=== PATIENT | male | born 1980 | race Hispanic/Latino ===

== ENCOUNTER 2023-01-03 17:21 | Inpatient (IN) | payer BC, OTHER ==
[~2023-01-03] VITALS: Ht 188 cm; Wt 137.0 kg
[~2023-01-03 17:21] MED LIST: CEPH500B PO; IBUP-1493 PO
[2023-01-03 18:05] LABS: BASOPHILS % (AUTO) 0.3 % (0.0-5.0); HEMATOCRIT 43.5 % (42-54); LYMPHOCYTES % (AUTO) 7.2 % (21.0-51.0); MEAN CORPUSCULAR HEMOGLOBIN 27.5 pg (27.0-33.0); MEAN CORPUSCULAR HGB CONC 33.3 g/dL (32.0-36.0); MEAN CORPUSCULAR VOLUME 82.5 fL (79-99); MONOCYTES % (AUTO) 7.5 % (3.0-13.0); NEUTROPHILS % (AUTO) 83.4 % (40.0-77.0); PLATELET COUNT (AUTO) 238 K/uL (130-400); RED BLOOD CELL COUNT(AUTO) 5.27 MIL/uL (4.50-6.20); RED CELL DISTRIBUTION WIDTH 12.1 % (11.0-15.5); WHITE BLOOD COUNT (AUTO) 19.3 K/uL (4.8-10.8)
[2023-01-03 18:12] LABS: CREATININE 1.1 mg/dL (0.5-1.5); POTASSIUM 3.9 mmol/L (3.5-5.1)
[2023-01-03 18:16] LABS: ALBUMIN 2.4 g/dL (3.5-5.0); TOTAL PROTEIN, SERUM 7.9 g/dL (6.0-8.3)
[2023-01-03 18:29] LABS: APPEARANCE,URINE CLOUDY (CLEAR); BILIRUBIN,URINE NEGATIVE (NEGATIVE); COLOR,URINE YELLOW (YELLOW); GLUCOSE, URINE (UA) >=1000 mg/dL (NEGATIVE); KETONES,URINE 150 mg/dL (NEGATIVE); LEUKOCYTE ESTERASE ,URINE 500 Leu/uL (NEGATIVE); NITRATE,URINE NEGATIVE (NEGATIVE); OCCULT BLOOD,URINE MODERATE (NEGATIVE); PROTEIN,URINE 100 mg/dL (NEGATIVE); UROBILINOGEN,URINE 0.2 mg/dL (0.2-1.0)
[2023-01-03 18:32] LABS: BACTERIA,URINE RARE /HPF (None Seen); MUCUS,URINE RARE LPF (None Seen); OTHER CASTS, URINE 1 /LPF (None Seen); RBC,URINE 26-50 /HPF (0-1); SQUAMOUS EPITHELIAL CELL,UR FEW /HPF (0-2); WBC,URINE 26-50 /HPF (0-1)
[2023-01-03] MEDS ORDERED: CEFTRIAXONE 1G VIAL IVPB ONE (19:00)
[2023-01-03] MEDS ORDERED: 0.9%NACL 1000ML 2,000 ML IV ONE (19:00)
[2023-01-03] MEDS ORDERED: ACETAMINOPHEN 500 MG TABLET PO ONE (19:00)
[2023-01-03] MEDS ORDERED: INSULIN HUMULIN R 100 UNIT/ML 3ML IV ONE (19:00)
[2023-01-03 19:38] LABS: ABG OXYGEN SATURATION 41.4 % (95.0-99.0); BASE EXCESS,VENOUS BLOOD GAS -3.4 (-2.0-3.0); HCO3,VENOUS BLOOD GAS 21.2 (21.0-28.0); PCO2,VENOUS BLOOD GAS 38 (35-48); PH,VENOUS BLOOD GAS 7.371 (7.350-7.450)
[2023-01-03] MEDS ORDERED: ONDANSETRON 4MG TABLET PO PRN (21:00)
[2023-01-03] MEDS ORDERED: VANCOMYCIN PROTOCOL PER PHARMACY IV SCH (21:00)
[2023-01-03] MEDS: CEFEPIME HCL 2 GM VIAL IVPB SCH (21:08)
[2023-01-03] MEDS: INSULIN HUMULIN R 100 UNIT/ML 3ML SQ SCH (21:16)
[2023-01-03 23:00] VITALS: BP 139/74
[2023-01-04] VITALS (23 sets, daily range): BP systolic 111–146; BP diastolic 68–92
[2023-01-04 04:32] LABS: BASOPHILS % (AUTO) 0.3 % (0.0-5.0); EOSINOPHILS % (AUTO) 0.1 % (0.0-8.0); HEMATOCRIT 37.6 % (42-54); LYMPHOCYTES % (AUTO) 11.2 % (21.0-51.0); MEAN CORPUSCULAR HGB CONC 33.2 g/dL (32.0-36.0); MEAN CORPUSCULAR VOLUME 84.3 fL (79-99); MONOCYTES % (AUTO) 9.6 % (3.0-13.0); NEUTROPHILS % (AUTO) 75.8 % (40.0-77.0); PLATELET COUNT (AUTO) 207 K/uL (130-400); RED BLOOD CELL COUNT(AUTO) 4.46 MIL/uL (4.50-6.20); WHITE BLOOD COUNT (AUTO) 17.9 K/uL (4.8-10.8)
[2023-01-04 04:39] LABS: CREATININE 1.1 mg/dL (0.5-1.5); MAGNESIUM 1.7 mg/dL (1.80-2.40); POTASSIUM 3.6 mmol/L (3.5-5.1)
[2023-01-04] MEDS: CEFEPIME HCL 2 GM VIAL IVPB SCH ×3 (05:10→20:20)
[2023-01-04] MEDS: INSULIN HUMULIN R 100 UNIT/ML 3ML SQ SCH ×4 (06:39→20:30)
[2023-01-04] MEDS: ACETAMINOPHEN 325 MG TAB PO PRN ×2 (08:30→23:05)
[2023-01-04] MEDS: ENOXAPARIN SODIUM 40 MG/0.4 ML SYRINGE SQ SCH (08:31)
[2023-01-04] MEDS ORDERED: COMPOUND IV REFRIGERATED 1 EACH IVSOLN MISC PRN (10:00)
[2023-01-04] MEDS: VANCOMYCIN 1.5 GM/250 ML BAG 250 ML IV SCH ×3 (10:07→21:50)
[2023-01-04] MEDS ORDERED: DIPH,PERTUSS(ACELL),TET VAC/PF 0.5 ML VIAL IM ONE (11:00)
[2023-01-04] MEDS ORDERED: POTASSIUM CHLORIDE 20MEQ/100ML 100 ML IV PRN ×2 (16:00)
[2023-01-04] MEDS ORDERED: POTASSIUM CHLORIDE 10% ELIXIR 20 MEQ/15 ML UDCUP PO PRN (16:00)
[2023-01-04] MEDS ORDERED: LACTATED RINGERS 1000ML IV SCH (17:00)
[2023-01-04] MEDS ORDERED: BUPIVACAINE/PF 0.5% 30ML VIAL ONE (17:35)
[2023-01-04] MEDS ORDERED: LIDOCAINE HCL 1% 10 ML VIAL ONE (17:35)
[2023-01-04] MEDS ORDERED: PROPOFOL 10 MG/ML 20ML VIAL IV ONE (17:44)
[2023-01-04] MEDS ORDERED: MIDAZOLAM HCL 1 MG/ML 2ML VIAL ONE (17:44)
[2023-01-04] MEDS ORDERED: LIDOCAINE PF 100MG/5ML (2%) SYRINGE 5ML ONE (17:44)
[2023-01-04] MEDS ORDERED: FENTANYL CITRATE PF 50 MCG/1 ML 2ML VIAL ONE (17:44)
[2023-01-04] MEDS ORDERED: BUPIVACAINE/PF 0.5% 30ML VIAL INJ ONE (17:55)
[2023-01-04] MEDS ORDERED: LIDOCAINE HCL 1% 10 ML VIAL INJ ONE (17:55)
[2023-01-04] MEDS ORDERED: ONDANSETRON 4MG INJ ONE (18:10)
[2023-01-04] MEDS ORDERED: ACETAMINOPHEN WITH CODEINE 1 TAB TAB PO PRN (21:00)
[2023-01-04] MEDS: KCL 20 MEQ ERTAB PO PRN (21:49)
[2023-01-05] VITALS (7 sets, daily range): BP systolic 106–138; BP diastolic 58–85
[2023-01-05] MEDS: MAGNESIUM 2GM PREMIX 50ML 50 ML IV PRN (00:40)
[2023-01-05] MEDS: CEFEPIME HCL 2 GM VIAL IVPB SCH ×3 (06:03→20:59)
[2023-01-05] MEDS: INSULIN HUMULIN R 100 UNIT/ML 3ML SQ SCH ×4 (06:06→21:14)
[2023-01-05] MEDS: VANCOMYCIN 1.5 GM/250 ML BAG 250 ML IV SCH ×3 (06:33→21:00)
[2023-01-05] MEDS: ENOXAPARIN SODIUM 40 MG/0.4 ML SYRINGE SQ SCH (09:25)
[2023-01-05 13:43] LABS: HEMATOCRIT 38.2 % (42-54); MEAN CORPUSCULAR HEMOGLOBIN 27.9 pg (27.0-33.0); MEAN CORPUSCULAR HGB CONC 33.2 g/dL (32.0-36.0); MEAN CORPUSCULAR VOLUME 83.8 fL (79-99); RED BLOOD CELL COUNT(AUTO) 4.56 MIL/uL (4.50-6.20); RED CELL DISTRIBUTION WIDTH 12.1 % (11.0-15.5); WHITE BLOOD COUNT (AUTO) 11.9 K/uL (4.8-10.8)
[2023-01-05 13:50] LABS: POTASSIUM 3.6 mmol/L (3.5-5.1)
[2023-01-05] MEDS: KCL 20 MEQ ERTAB PO PRN ×2 (16:12→18:29)
[2023-01-05] MEDS: ACETAMINOPHEN 325 MG TAB PO PRN (23:28)
[2023-01-06 03:33] VITALS: BP 124/68
[2023-01-06] MEDS: CEFEPIME HCL 2 GM VIAL IVPB SCH ×3 (04:47→21:09)
[2023-01-06] MEDS: VANCOMYCIN 1.5 GM/250 ML BAG 250 ML IV SCH ×3 (05:00→22:51)
[2023-01-06 05:06] LABS: HEMATOCRIT 34.5 % (42-54); MEAN CORPUSCULAR HEMOGLOBIN 27.9 pg (27.0-33.0); MEAN CORPUSCULAR HGB CONC 33.9 g/dL (32.0-36.0); MEAN CORPUSCULAR VOLUME 82.1 fL (79-99); RED BLOOD CELL COUNT(AUTO) 4.2 MIL/uL (4.50-6.20); RED CELL DISTRIBUTION WIDTH 12.1 % (11.0-15.5); WHITE BLOOD COUNT (AUTO) 10.9 K/uL (4.8-10.8)
[2023-01-06 05:16] LABS: CREATININE 0.9 mg/dL (0.5-1.5); MAGNESIUM 1.8 mg/dL (1.80-2.40)
[2023-01-06] MEDS: KCL 20 MEQ ERTAB PO PRN ×4 (05:25→16:19)
[2023-01-06] MEDS: INSULIN HUMULIN R 100 UNIT/ML 3ML SQ SCH ×4 (06:23→21:12)
[2023-01-06 08:00] VITALS: BP 120/72
[2023-01-06] MEDS: MAGNESIUM 2GM PREMIX 50ML 50 ML IV PRN (09:47)
[2023-01-06] MEDS: ENOXAPARIN SODIUM 40 MG/0.4 ML SYRINGE SQ SCH (09:47)
[2023-01-06 11:56] VITALS: BP 124/75
[2023-01-06 16:00] VITALS: BP 132/78
[2023-01-06 20:00] VITALS: BP 137/82
[2023-01-06 23:30] VITALS: BP 117/67
[2023-01-07 03:54] VITALS: BP 135/74
[2023-01-07] MEDS: CEFEPIME HCL 2 GM VIAL IVPB SCH (04:15)
[2023-01-07] MEDS: VANCOMYCIN 1.5 GM/250 ML BAG 250 ML IV SCH ×3 (06:19→22:15)
[2023-01-07] MEDS: INSULIN HUMULIN R 100 UNIT/ML 3ML SQ SCH ×4 (06:23→21:56)
[2023-01-07 07:44] VITALS: BP 136/77
[2023-01-07] MEDS: CEFEPIME HCL 1 GM VIAL IVPB SCH ×2 (10:10→17:47)
[2023-01-07] MEDS: ENOXAPARIN SODIUM 40 MG/0.4 ML SYRINGE SQ SCH (10:13)
[2023-01-07 11:26] VITALS: BP 140/66
[2023-01-07 15:57] VITALS: BP 152/79
[2023-01-07 20:07] VITALS: BP 135/79
[2023-01-07 23:13] VITALS: BP 135/65
[2023-01-08] MEDS: CEFEPIME HCL 1 GM VIAL IVPB SCH ×2 (02:30→09:19)
[2023-01-08 04:00] VITALS: BP 137/84
[2023-01-08] MEDS: VANCOMYCIN 1.5 GM/250 ML BAG 250 ML IV SCH ×2 (06:16→14:02)
[2023-01-08] MEDS: INSULIN HUMULIN R 100 UNIT/ML 3ML SQ SCH ×3 (06:16→16:22)
[2023-01-08 08:00] VITALS: BP 138/79
[2023-01-08] MEDS: ENOXAPARIN SODIUM 40 MG/0.4 ML SYRINGE SQ SCH (09:19)
[2023-01-08 12:00] VITALS: BP 138/82
[2023-01-08 16:00] VITALS: BP 140/79
== END 2023-01-08 17:25 | DRG 872 ==
LOC: EDH 17:21 → EDHIP 17:22 → 4CH 23:00
PROVIDERS: ADMIT Internal Medicine Infectious Disease; ATTEND Internal Medicine Infectious Disease
PROC: 0J9R0ZZ Drainage of Left Foot Subcutaneous Tissue and Fascia, Open Approach (ICD-10-PCS; principal; 2023-01-04 17:49)
DX: A41.02 Sepsis due to Methicillin resistant Staphylococcus aureus (principal); L03.116 Cellulitis of left lower limb; E87.1 Hypo-osmolality and hyponatremia; L02.612 Cutaneous abscess of left foot; N39.0 Urinary tract infection, site not specified; L03.115 Cellulitis of right lower limb; Z20.822 Contact with and (suspected) exposure to COVID-19; R65.20 Severe sepsis without septic shock; E11.621 Type 2 diabetes mellitus with foot ulcer; E11.628 Type 2 diabetes mellitus with other skin complications; L97.529 Non-pressure chronic ulcer of other part of left foot with unspecified severity; L97.519 Non-pressure chronic ulcer of other part of right foot with unspecified severity; E66.01 Morbid (severe) obesity due to excess calories; I10 Essential (primary) hypertension; W45.0XXA Nail entering through skin, initial encounter; Y93.89 Activity, other specified; Y92.89 Other specified places as the place of occurrence of the external cause; Y99.8 Other external cause status; Z83.3 Family history of diabetes mellitus; Z91.199 Patient's noncompliance with other medical treatment and regimen due to unspecified reason; Z68.38 Body mass index [BMI] 38.0-38.9, adult
CPT/HCPCS: 36415; 36600; 71045; 73630; 80048; 80053; 80202; 81001; 82010; 82435; 82803; 82947; 82948; 83036; 83605; 83735; 84132; 84295; 85025; 85027; 87040; 87070; 87076; 87077; 87088; 87186; 87205; 87635; 90715; 93005; 97039; G0378; J0692; J0696; J1650; J1815; J2001; J2250; J2405; J2704; J3010; J3475; J3490; J7030

== ENCOUNTER 2023-07-14 16:57 | Emergency (ER) | payer BC ==
[~2023-07-14] VITALS: Ht 188 cm; Wt 147.4 kg
[2023-07-14 16:58] VITALS: RESP 16
[2023-07-14 17:59] LABS: BASOPHILS # (AUTO) 0.04 K/uL (0.00-0.20); BASOPHILS % (AUTO) 0.4 % (0.0-5.0); EOSINOPHILS # (AUTO) 0.19 K/uL (0.00-0.70); EOSINOPHILS % (AUTO) 1.8 % (0.0-8.0); HEMATOCRIT 44.5 % (42-54); IMMATURE GRANULOCYTE ABSOLUTE 0.06 K/uL (0-1); LYMPHOCYTES # (AUTO) 2.7 K/uL (1.0-4.8); LYMPHOCYTES % (AUTO) 26.1 % (21.0-51.0); MEAN CORPUSCULAR HEMOGLOBIN 27.3 pg (27.0-33.0); MEAN CORPUSCULAR HGB CONC 33.9 g/dL (32.0-36.0); MEAN CORPUSCULAR VOLUME 80.3 fL (79-99); MONOCYTES # (AUTO) 0.8 K/uL (0.1-1.0); MONOCYTES % (AUTO) 7.2 % (3.0-13.0); NEUTROPHILS # (AUTO) 6.7 K/uL (1.8-7.7); NEUTROPHILS % (AUTO) 63.9 % (40.0-77.0); PLATELET COUNT (AUTO) 222 K/uL (130-400); RED BLOOD CELL COUNT(AUTO) 5.54 MIL/uL (4.50-6.20); RED CELL DISTRIBUTION WIDTH 13.7 % (11.0-15.5); WHITE BLOOD COUNT (AUTO) 10.5 K/uL (4.8-10.8)
[2023-07-14] MEDS ORDERED: 0.9% NACL 250ML IVPB ONE (18:00)
[2023-07-14] MEDS ORDERED: VANCOMYCIN 750MG VIAL IVPB ONE (18:00)
[2023-07-14 18:11] LABS: INR 0.94 (0.85-1.15); PROTHROMBIN TIME 10.9 SEC (9.6-11.6)
[2023-07-14 18:12] LABS: PARTIAL THROMBOPLASTIN TIME 26.9 SEC (26.3-35.5); POTASSIUM 4.3 mmol/L (3.5-5.1)
[2023-07-14 18:17] LABS: ALBUMIN 3.8 g/dL (3.5-5.0); BILIRUBIN,TOTAL 0.6 mg/dL (0.2-1.0); TOTAL PROTEIN, SERUM 8.1 g/dL (6.0-8.3)
[2023-07-14 18:36] LABS: APPEARANCE,URINE CLOUDY (CLEAR); BILIRUBIN,URINE NEGATIVE (NEGATIVE); COLOR,URINE YELLOW (YELLOW); GLUCOSE, URINE (UA) 150 mg/dL (NEGATIVE); KETONES,URINE NEGATIVE (NEGATIVE); LEUKOCYTE ESTERASE ,URINE 500 Leu/uL (NEGATIVE); NITRATE,URINE NEGATIVE (NEGATIVE); OCCULT BLOOD,URINE SMALL (NEGATIVE); PH,URINE 5.5 (5.0-8.0); PROTEIN,URINE 100 mg/dL (NEGATIVE); UROBILINOGEN,URINE 0.2 mg/dL (0.2-1.0)
[2023-07-14 18:37] LABS: ADD UA MICROSCOPIC YES
[2023-07-14 18:39] LABS: BACTERIA,URINE FEW /HPF (None Seen); MUCUS,URINE MOD LPF (None Seen); SQUAMOUS EPITHELIAL CELL,UR FEW /HPF (0-2); UNCLASSIFIED CRYSTAL 1 /HPF (None Seen)
[2023-07-14 18:49] VITALS: BP 100/64; PULSE 83; O2SAT 98
[2023-07-14] MEDS ORDERED: CEPH500B PO (18:56)
[2023-07-14] MEDS ORDERED: SULF1TAB42 PO (18:56)
== END 2023-07-14 19:09 | disposition home or self-care (01) ==
LOC: EDH 16:57
DX: E11.621 Type 2 diabetes mellitus with foot ulcer (principal); N39.0 Urinary tract infection, site not specified; E78.00 Pure hypercholesterolemia, unspecified; I10 Essential (primary) hypertension
CPT/HCPCS: 99284; 96365; 96366; 82550; 84484; 80053; 85025; 85610; 85730; 85651; 87040 ×2; 87088; 83605; 81001; 36415; 73630; 84145; J3370

== ENCOUNTER 2024-01-11 15:31 | Inpatient (IN) | payer BC ==
[~2024-01-11] VITALS: Ht 188 cm; Wt 150.6 kg
[~2024-01-11 15:31] MED LIST changes: +ACET-2079 PO; -CEPH500B PO; -IBUP-1493 PO; +LISI10TA24 PO; +METF-444 PO; +ROSU10TA72 PO; +SEMA0.258 SQ
[2024-01-11] MEDS: ACETAMINOPHEN 500 MG TABLET PO ONE (15:51)
[2024-01-11] MEDS: 0.9%NACL 1000ML 1,000 ML IV ONE (15:51)
[2024-01-11 16:01] LABS: BASOPHILS # (AUTO) 0.03 K/uL (0.00-0.20); BASOPHILS % (AUTO) 0.2 % (0.0-5.0); EOSINOPHILS # (AUTO) 0.02 K/uL (0.00-0.70); EOSINOPHILS % (AUTO) 0.1 % (0.0-8.0); HEMATOCRIT 44.7 % (42-54); IMMATURE GRANULOCYTE ABSOLUTE 0.19 K/uL (0-1); LYMPHOCYTES # (AUTO) 0.8 K/uL (1.0-4.8); LYMPHOCYTES % (AUTO) 4.1 % (21.0-51.0); MEAN CORPUSCULAR HEMOGLOBIN 27.3 pg (27.0-33.0); MEAN CORPUSCULAR HGB CONC 33.8 g/dL (32.0-36.0); MEAN CORPUSCULAR VOLUME 80.7 fL (79-99); MONOCYTES # (AUTO) 0.8 K/uL (0.1-1.0); NEUTROPHILS # (AUTO) 16.9 K/uL (1.8-7.7); NEUTROPHILS % (AUTO) 90.6 % (40.0-77.0); PLATELET COUNT (AUTO) 168 K/uL (130-400); RED BLOOD CELL COUNT(AUTO) 5.54 MIL/uL (4.50-6.20); RED CELL DISTRIBUTION WIDTH 13.1 % (11.0-15.5); WHITE BLOOD COUNT (AUTO) 18.6 K/uL (4.8-10.8)
[2024-01-11 16:17] LABS: CREATININE 1.2 mg/dL (0.5-1.3); POTASSIUM 4.9 mmol/L (3.5-5.1)
[2024-01-11 16:22] LABS: ALBUMIN 3.4 g/dL (3.5-5.0); BILIRUBIN,TOTAL 0.6 mg/dL (0.2-1.0); TOTAL PROTEIN, SERUM 7.6 g/dL (6.0-8.3)
[2024-01-11 19:27] LABS: INR 1.12 (0.85-1.15); PROTHROMBIN TIME 11.8 SEC (9.6-11.6)
[2024-01-11] MEDS ORDERED: VANCOMYCIN PROTOCOL PER PHARMACY IV SCH ×2 (20:00)
[2024-01-11] MEDS ORDERED: ONDANSETRON 4MG TABLET PO PRN (20:00)
[2024-01-11] MEDS ORDERED: PHARMACY COMMUNICATION MISC SCH (20:00)
[2024-01-11] MEDS: CEFTRIAXONE 2GM VIAL IVPB ONE (20:25)
[2024-01-11] MEDS: ENOXAPARIN SODIUM 30 MG/0.3 ML SQ ONE (20:25)
[2024-01-11] MEDS: CEFEPIME HCL 2 GM VIAL IVPB SCH (20:37)
[2024-01-11] MEDS: MORPHINE 2 MG SYG IVP PRN (20:41)
[2024-01-11] MEDS: ACETAMINOPHEN 325 MG TAB PO PRN (20:52)
[2024-01-11 21:38] VITALS: TEMP 101
[2024-01-11 21:50] VITALS: BP 150/59; PULSE 133; RESP 20
[2024-01-11 21:55] VITALS: O2SAT 97
[2024-01-12] VITALS (9 sets, daily range): BP systolic 125–152; BP diastolic 66–82; PULSE 93–121; RESP 16–20; O2SAT 95–99
[2024-01-12 04:34] LABS: BASOPHILS # (AUTO) 0.03 K/uL (0.00-0.20); BASOPHILS % (AUTO) 0.1 % (0.0-5.0); HEMATOCRIT 43.1 % (42-54); IMMATURE GRANULOCYTE ABSOLUTE 0.23 K/uL (0-1); LYMPHOCYTES # (AUTO) 0.7 K/uL (1.0-4.8); LYMPHOCYTES % (AUTO) 3.3 % (21.0-51.0); MEAN CORPUSCULAR HEMOGLOBIN 27.7 pg (27.0-33.0); MEAN CORPUSCULAR HGB CONC 33.2 g/dL (32.0-36.0); MEAN CORPUSCULAR VOLUME 83.4 fL (79-99); MONOCYTES # (AUTO) 0.8 K/uL (0.1-1.0); MONOCYTES % (AUTO) 3.8 % (3.0-13.0); NEUTROPHILS # (AUTO) 18.5 K/uL (1.8-7.7); NEUTROPHILS % (AUTO) 91.7 % (40.0-77.0); PLATELET COUNT (AUTO) 145 K/uL (130-400); RED BLOOD CELL COUNT(AUTO) 5.17 MIL/uL (4.50-6.20); WHITE BLOOD COUNT (AUTO) 20.2 K/uL (4.8-10.8)
[2024-01-12 04:42] LABS: CREATININE 1.2 mg/dL (0.5-1.3); MAGNESIUM 1.3 mg/dL (1.80-2.40); POTASSIUM 4.1 mmol/L (3.5-5.1)
[2024-01-12] MEDS: INSULIN HUMULIN R 100 UNIT/ML 3ML SQ SCH (06:46)
[2024-01-12] MEDS: VANCOMYCIN 2GM/500 ML BAG 500 ML IV ONE (07:40)
[2024-01-12] MEDS: MAGNESIUM 2GM PREMIX 50ML 50 ML IV PRN (07:46)
[2024-01-12] MEDS ORDERED: GADOTERATE MEGLUMINE 10 MMOL/20 ML VIAL IV ONE (12:36)
[2024-01-12] MEDS: CEFEPIME HCL 1 GM VIAL IVPB SCH (12:51)
[2024-01-12] MEDS: VANCOMYCIN 1.25 GM/250 ML BAG 250 ML IV SCH (19:15)
[2024-01-13] VITALS (7 sets, daily range): BP systolic 106–140; BP diastolic 46–90; PULSE 88–102; RESP 18–22; O2SAT 96
[2024-01-13 04:28] LABS: BASOPHILS # (AUTO) 0.03 K/uL (0.00-0.20); BASOPHILS % (AUTO) 0.2 % (0.0-5.0); EOSINOPHILS # (AUTO) 0.01 K/uL (0.00-0.70); EOSINOPHILS % (AUTO) 0.1 % (0.0-8.0); HEMATOCRIT 39.4 % (42-54); IMMATURE GRANULOCYTE ABSOLUTE 0.12 K/uL (0-1); LYMPHOCYTES % (AUTO) 7.9 % (21.0-51.0); MEAN CORPUSCULAR HEMOGLOBIN 27.5 pg (27.0-33.0); MEAN CORPUSCULAR HGB CONC 33.8 g/dL (32.0-36.0); MEAN CORPUSCULAR VOLUME 81.6 fL (79-99); MONOCYTES # (AUTO) 0.8 K/uL (0.1-1.0); MONOCYTES % (AUTO) 6.5 % (3.0-13.0); NEUTROPHILS # (AUTO) 10.6 K/uL (1.8-7.7); NEUTROPHILS % (AUTO) 84.3 % (40.0-77.0); PLATELET COUNT (AUTO) 143 K/uL (130-400); RED BLOOD CELL COUNT(AUTO) 4.83 MIL/uL (4.50-6.20); RED CELL DISTRIBUTION WIDTH 13.2 % (11.0-15.5); WHITE BLOOD COUNT (AUTO) 12.6 K/uL (4.8-10.8)
[2024-01-13 04:34] LABS: CREATININE 1.1 mg/dL (0.5-1.3); MAGNESIUM 1.7 mg/dL (1.80-2.40); POTASSIUM 4.1 mmol/L (3.5-5.1)
[2024-01-13] MEDS: IODOSORB GEL 40GM TP ONE (09:03)
[2024-01-13] MEDS: LISINOPRIL 10 MG TABLET PO SCH (18:44)
[2024-01-13] MEDS: ATORVASTATIN 20 MG TABLET PO SCH (20:55)
[2024-01-14 04:00] VITALS: BP 152/86; PULSE 72; RESP 20
[2024-01-14] MEDS: VANCOMYCIN 1G/250ML KIT 250 ML IV SCH (06:23)
[2024-01-14 08:00] VITALS: BP 139/82; PULSE 79; RESP 18; O2SAT 97
[2024-01-14 12:00] VITALS: BP 138/86; PULSE 92; RESP 20
[2024-01-14 12:36] LABS: INR <= 0.93 (0.85-1.15); PROTHROMBIN TIME 10.9 SEC (9.6-11.6)
[2024-01-14 16:00] VITALS: BP 154/83; PULSE 81; RESP 20
[2024-01-14 20:00] VITALS: BP 158/86; PULSE 70; RESP 20; O2SAT 99
[2024-01-14] MEDS: FAMOTIDINE 20MG TAB PO SCH (20:45)
[2024-01-15] VITALS (7 sets, daily range): BP systolic 148–155; BP diastolic 77–89; PULSE 76–92; RESP 18–20; O2SAT 98–99
[2024-01-15 05:18] LABS: BASOPHILS # (AUTO) 0.02 K/uL (0.00-0.20); BASOPHILS % (AUTO) 0.3 % (0.0-5.0); EOSINOPHILS # (AUTO) 0.15 K/uL (0.00-0.70); EOSINOPHILS % (AUTO) 2.2 % (0.0-8.0); HEMATOCRIT 36.4 % (42-54); IMMATURE GRANULOCYTE ABSOLUTE 0.09 K/uL (0-1); LYMPHOCYTES # (AUTO) 1.5 K/uL (1.0-4.8); MEAN CORPUSCULAR HEMOGLOBIN 27.5 pg (27.0-33.0); MEAN CORPUSCULAR HGB CONC 33.8 g/dL (32.0-36.0); MEAN CORPUSCULAR VOLUME 81.4 fL (79-99); MONOCYTES # (AUTO) 0.7 K/uL (0.1-1.0); NEUTROPHILS # (AUTO) 4.4 K/uL (1.8-7.7); NEUTROPHILS % (AUTO) 64.2 % (40.0-77.0); PLATELET COUNT (AUTO) 168 K/uL (130-400); RED BLOOD CELL COUNT(AUTO) 4.47 MIL/uL (4.50-6.20); RED CELL DISTRIBUTION WIDTH 12.9 % (11.0-15.5); WHITE BLOOD COUNT (AUTO) 6.8 K/uL (4.8-10.8)
[2024-01-15 05:42] LABS: ALBUMIN 2.2 g/dL (3.5-5.0); BILIRUBIN,TOTAL 0.3 mg/dL (0.2-1.0); MAGNESIUM 1.6 mg/dL (1.80-2.40); POTASSIUM 3.9 mmol/L (3.5-5.1); TOTAL PROTEIN, SERUM 6.2 g/dL (6.0-8.3)
[2024-01-16] VITALS (7 sets, daily range): BP systolic 130–159; BP diastolic 80–96; PULSE 73–87; RESP 18–20; O2SAT 99
[2024-01-16 03:50] LABS: MEAN CORPUSCULAR HEMOGLOBIN 27.6 pg (27.0-33.0); MEAN CORPUSCULAR HGB CONC 33.5 g/dL (32.0-36.0); MEAN CORPUSCULAR VOLUME 82.4 fL (79-99); RED BLOOD CELL COUNT(AUTO) 4.49 MIL/uL (4.50-6.20); RED CELL DISTRIBUTION WIDTH 12.8 % (11.0-15.5); WHITE BLOOD COUNT (AUTO) 7.9 K/uL (4.8-10.8)
[2024-01-16 04:02] LABS: CREATININE 1.1 mg/dL (0.5-1.3); MAGNESIUM 1.6 mg/dL (1.80-2.40); POTASSIUM 3.6 mmol/L (3.5-5.1)
[2024-01-16] MEDS ORDERED: TRAMADOL HCL 50 MG TABLET PO PRN (18:30)
[2024-01-16] MEDS: ACETAMINOPHEN WITH CODEINE 1 TAB TAB PO PRN (18:48)
[2024-01-17] VITALS: BP 154/72; PULSE 72; RESP 20
[2024-01-17 04:00] VITALS: BP 161/94; PULSE 70; RESP 20
[2024-01-17 08:00] VITALS: BP 168/99; PULSE 80; RESP 18
[2024-01-17] MEDS: KCL 20 MEQ ERTAB PO ONE (08:44)
[2024-01-17 08:55] VITALS: O2SAT 97
[2024-01-17 11:01] VITALS: BP 158/98; PULSE 79; RESP 18
[2024-01-17 16:16] VITALS: BP 148/92; PULSE 77; RESP 18
== END 2024-01-17 19:51 | DRG 872 ==
LOC: EDH 15:31 → EDHIP 19:49 → 3CH 21:06
PROVIDERS: ADMIT Internal Medicine Infectious Disease; ATTEND Internal Medicine Infectious Disease
PROC: 05HY33Z Insertion of Infusion Device into Upper Vein, Percutaneous Approach (ICD-10-PCS; principal; 2024-01-14)
PROC: B54MZZA Ultrasonography of Right Upper Extremity Veins, Guidance (ICD-10-PCS; 2024-01-14)
DX: A41.1 Sepsis due to other specified staphylococcus (principal); L02.612 Cutaneous abscess of left foot; L03.115 Cellulitis of right lower limb; M86.171 Other acute osteomyelitis, right ankle and foot; Z68.41 Body mass index [BMI] 40.0-44.9, adult; E11.621 Type 2 diabetes mellitus with foot ulcer; E66.01 Morbid (severe) obesity due to excess calories; E78.5 Hyperlipidemia, unspecified; B95.61 Methicillin susceptible Staphylococcus aureus infection as the cause of diseases classified elsewhere; E11.42 Type 2 diabetes mellitus with diabetic polyneuropathy; E11.610 Type 2 diabetes mellitus with diabetic neuropathic arthropathy; E11.69 Type 2 diabetes mellitus with other specified complication; I10 Essential (primary) hypertension; L97.519 Non-pressure chronic ulcer of other part of right foot with unspecified severity; Z88.8 Allergy status to other drugs, medicaments and biological substances; Z83.3 Family history of diabetes mellitus
CPT/HCPCS: 36415; 36569; 71045; 73720; 80048; 80053; 80202; 82948; 83036; 83605; 83735; 85025; 85027; 85610; 85730; 87040; 87070; 87076; 87077; 87186; 93005; 93971; 96365; 96372; 96375; 99291; C1894; G0378; J0692; J0696; J1650; J1815; J2270; J3370; J3475; 3370; A9575

== ENCOUNTER 2024-02-20 16:23 | Emergency (ER) | payer BC ==
[~2024-02-20] VITALS: Ht 185.4 cm; Wt 144.2 kg
[~2024-02-20 16:23] MED LIST changes: -ACET-2079 PO
[2024-02-20 17:51] LABS: BASOPHILS # (AUTO) 0.03 K/uL (0.00-0.20); BASOPHILS % (AUTO) 0.4 % (0.0-5.0); EOSINOPHILS % (AUTO) 2.5 % (0.0-8.0); HEMATOCRIT 37.5 % (42-54); IMMATURE GRANULOCYTE ABSOLUTE 0.05 K/uL (0-1); LYMPHOCYTES # (AUTO) 2.3 K/uL (1.0-4.8); LYMPHOCYTES % (AUTO) 27.6 % (21.0-51.0); MEAN CORPUSCULAR HEMOGLOBIN 27.5 pg (27.0-33.0); MEAN CORPUSCULAR HGB CONC 33.3 g/dL (32.0-36.0); MEAN CORPUSCULAR VOLUME 82.4 fL (79-99); MONOCYTES # (AUTO) 0.9 K/uL (0.1-1.0); MONOCYTES % (AUTO) 10.4 % (3.0-13.0); NEUTROPHILS # (AUTO) 4.8 K/uL (1.8-7.7); NEUTROPHILS % (AUTO) 58.5 % (40.0-77.0); PLATELET COUNT (AUTO) 156 K/uL (130-400); RED BLOOD CELL COUNT(AUTO) 4.55 MIL/uL (4.50-6.20); RED CELL DISTRIBUTION WIDTH 13.1 % (11.0-15.5); WHITE BLOOD COUNT (AUTO) 8.2 K/uL (4.8-10.8)
[2024-02-20 17:55] LABS: POTASSIUM 4.1 mmol/L (3.5-5.1)
[2024-02-20 17:59] LABS: ALBUMIN 3.1 g/dL (3.5-5.0); BILIRUBIN,TOTAL 0.3 mg/dL (0.2-1.0); TOTAL PROTEIN, SERUM 6.9 g/dL (6.0-8.3)
[2024-02-20 19:04] VITALS: BP 139/77; PULSE 77; RESP 20; O2SAT 98
== END 2024-02-20 19:09 | disposition home or self-care (01) ==
LOC: EDH 16:23
DX: L97.519 Non-pressure chronic ulcer of other part of right foot with unspecified severity (principal); E11.621 Type 2 diabetes mellitus with foot ulcer; I10 Essential (primary) hypertension; Z79.84 Long term (current) use of oral hypoglycemic drugs; Z79.899 Other long term (current) drug therapy; Z88.5 Allergy status to narcotic agent
CPT/HCPCS: 36415; 73630; 80053; 83605; 85025; 87040

== ENCOUNTER 2024-04-05 11:58 | Emergency (ER) | payer BC ==
[~2024-04-05] VITALS: Ht 188 cm; Wt 154.2 kg
[~2024-04-05 11:58] MED LIST changes: +AMLO-258 PO; +ATOR10TA69 PO; +FAMO20TA8 PO; +GABA-529 PO; +INSU100V51 SQ; -LISI10TA24 PO; +LISI20TA24 PO
[2024-04-05 15:39] VITALS: BP 145/78; PULSE 78; RESP 18; O2SAT 98
== END 2024-04-05 15:39 | disposition home or self-care (01) ==
LOC: EDH 11:58
DX: Z45.2 Encounter for adjustment and management of vascular access device (principal); E11.9 Type 2 diabetes mellitus without complications; I10 Essential (primary) hypertension; Z79.899 Other long term (current) drug therapy; Z88.8 Allergy status to other drugs, medicaments and biological substances; Z98.890 Other specified postprocedural states
CPT/HCPCS: 99281

== ENCOUNTER 2025-08-08 19:29 | Emergency (ER) | payer BC ==
[~2025-08-08] VITALS: Ht 188 cm; Wt 152.0 kg
--- NOTE | 2025-08-08 19:55 | ERN ---
ED Note History of Present Illness Stated Complaint: WOUND VAC TO R FOOT DISLODGED Chief Complaint: Wound Check Time Seen by MD: 19:34 Dictation: This is a 45-year-old male morbidly obese with known diabetes mellitus diabetic foot ulcer and other medical problems presented to the emergency room via EMS with complaints of severe right leg and lower extremity swelling as well as severe right leg and foot pain for the past 4-5 days in May 2025. He denied any injury and he stated that he is unsure if he stepped on a metal. Subjective fevers but no documented fever chills. No nausea vomitings diarrhea. He has had infection in his right foot with osteomyelitis in the past and required antibiotic therapy for a prolonged period of time and stayed in [facility] as well as [facility]. Eventually the infection improved significantly after which he had a recurrent infection of the right great toe in August 2024. He was admitted to the hospital in May. Patient was evaluated for right-sided diabetic foot ulcer and suspected osteomyelitis on this admission. Patient underwent several rounds of surgical debridement on this admission, and was eventually placed with a wound VAC. He continues on IV antibiotics in his being discharged to [facility] facility for continued IV antibiotics and wound VAC maintenance. Patient advised of per treatment plan expectations as well as a poor prognosis of the patient's diabetic foot ulcer and high possibility of amputation in the future. He presents today stating that the wound VAC sticky dressing patch got dislodged and patient's sister tried to stick it back and tied the bandage again. The wound VAC is beeping that there is a leak. The wound care nurse is supposed to come tomorrow and he decided to come in to the emergency room. No Fever chills or rigors. Temperature 98.2 pulse 86 respirations 16 blood pressure 154/90 with a pulse oximetry of 99 % on room air His chronic medical problems include diabetes mellitus with a neuropathy, hypertension, right foot osteomyelitis and history of previous left foot surgery, morbid obesity, hypercholesterolemia Allergies: Allergies: Coded Allergies: ketorolac (Unverified Allergy, Intermediate, ITCHING, 08/30/24) tramadol (Unverified Allergy, Unknown, 01/11/24) Home Meds Reported Medications Metformin HCl (Metformin HCl) 500 Mg Tablet, 1 TAB PO BID for 30 Days, #60 TAB 0 Refills 08/31/24 Lisinopril (Lisinopril) 10 Mg Tablet, 1 TAB PO DAILY for 30 Days, #30 TAB 0 Refills 08/31/24 Amlodipine Besylate (Amlodipine Besylate) 5 Mg Tablet, 1 TAB PO DAILY for 30 Days, #30 TAB 0 Refills 08/31/24 Insulin Glargine-Yfgn (Insulin Glargine-Yfgn) 100 Unit/Ml Vial, 100 UNIT SQ BID, VIAL INJECT 30 UNITS IN THE MORNING AND 30 IN THE EVENING DIRECTED 03/02/24 Atorvastatin Calcium (Atorvastatin Calcium) 10 Mg Tablet, 20 MG PO HS, TAB 03/02/24 Semaglutide (Ozempic) 0.25 Mg/0.368 Ml Pen.injctr, 1 MG SQ QWEEK EVERY Tuesday08/02/23 Past Medical History Past Medical History: Diabetes-Type II, Hypertension Additional Past Medical Hx: OSTEOMYOLITIS, NEUROPATHY Surgical History: Other Surgical History Other: LEFT FOOT Family History: Negative Social History: Negative RN Note Reviewed/Agreed w/PFSH: Yes Review of System Dictation Constitutional: Negative for fever,chills, and weight loss Eyes: Negative for injury, pain,redness, and discharge ENT: Negative for injury,pain or swelling Cardiovascular: Negative for chest pain, palpitations, and edema Respiratory: Negative for shortness of breath, cough, and wheezing, Abdomen/GI: Negative for abdominal pain, nausea, vomiting, diarrhea, and constipation Back: Negative for injury and pain : Negative for injury, bleeding and discharge MS/Extremity: Negative for injury and deformity Skin: Negative for rash, and discoloration positive for detachment of the sticky dressing of the wound VAC Neuro: Negative for headache, weakness, numbness, tingling, and seizure Psych: Negative for suicide ideation, homicidal ideation, and hallucinations Initial Vital Sign VS Vital Signs Date Time Temp Pulse Resp B/P (MAP) Pulse Ox O2 Delivery O2 Flow Rate FiO2 08/08/25 19:31 98.2 86 16 154/90 99 Room Air 0 Physical Exam Dictation General: awake, alert, NAD morbidly obese male Head/Face: Normocephalic, atraumatic Eyes: PERRL, EOMI, vision at baseline ENT: oral cavity clear, TMs clear, no signs of infection Neck: Trachea midline, supple, no nuchal rigidity Cardiovascular: RRR, normal S1/S2, No MRGs, no JVD Respiratory: CTAB, no respiratory distress, No rales or wheezes Abdomen: Soft, non-tender, non-distended, normal bowel sounds, no guarding or rebound. Skin: Warm, dry, normal turgor, no rash right foot plantar surface has a macerated excoriating skin near the base of the toes. There is a large wound VAC dressing extending from lateral aspect of the base of toes all the way to the heel. Used to be firmly attached. MS/Extremity: Pulses equal, no cyanosis, neurovascular intact, FROM Neuro: COAx4, GCS 15, strength 5/5, CN 2-12 intact, normal cerebellar exam, normal gait, Psych: Normal behavior, mood, and affect normal Extremities-trace edema without any palpable cords, Homans sign is negative ED Course ED Course Vital Signs Date Time Temp Pulse Resp B/P (MAP) Pulse Ox O2 Delivery O2 Flow Rate FiO2 08/08/25 19:31 98.2 86 16 154/90 99 Room Air 0 Medical Decision Making MDM Differential diagnosis: Simple replacement of the wound VAC dressing, malfunctioning wound VAC machine, worsening wound drainage This is a 45-year-old male morbidly obese with known diabetes mellitus diabetic foot ulcer and other medical problems presented to the emergency room via EMS with complaints of severe right leg and lower extremity swelling as well as severe right leg and foot pain for the past 4-5 days in May 2025. He denied any injury and he stated that he is unsure if he stepped on a metal. Subjective fevers but no documented fever chills. No nausea vomitings diarrhea. He has had infection in his right foot with osteomyelitis in the past and required antibiotic therapy for a prolonged period of time and stayed in [facility] as well as [facility]. Eventually the infection improved significantly after which he had a recurrent infection of the right great toe in August 2024. He was admitted to the hospital in May. Patient was evaluated for right-sided diabetic foot ulcer and suspected osteomyelitis on this admission. Patient underwent several rounds of surgical debridement on this admission, and was eventually placed with a wound VAC. He continues on IV antibiotics in his being discharged to [facility] facility for continued IV antibiotics and wound VAC maintenance. Patient advised of per treatment plan expectations as well as a poor prognosis of the patient's diabetic foot ulcer and high possibility of amputation in the future. He presents today stating that the wound VAC sticky dressing patch got dislodged and patient's sister tried to stick it back and tied the bandage again. The wound VAC is beeping that there is a leak. The wound care nurse is supposed to come tomorrow and he decided to come in to the emergency room. No Fever chills or rigors. Temperature 98.2 pulse 86 respirations 16 blood pressure 154/90 with a pulse oximetry of 99 % on room air His chronic medical problems include diabetes mellitus with a neuropathy, hypertension, right foot osteomyelitis and history of previous left foot surgery, morbid obesity, hypercholesterolemia Unfortunately we do not have any wound VAC dressings in the emergency room as well as tried the intensive care unit. I updated the patient and instructed him to wait until tomorrow for the wound care nurse to bring him extra supplies for situations like this. I also instructed him to completely take the dressing off if it is unable to stick and create the seal and place for before dressings temporarily. He verbalized understanding Rationale: Tests considered and ordered secondary to shared decision making include: Previous outside records reviewed: Old ER visits. Risk of complication and/or morbidity or mortality of patient management: None Medications-Per medication reconciliation Need for hospitalization: Patient does not meet criteria for hospitalization. Need for emergency major/minor surgery: No There are no social concerns with this patient. Prescription drug management Prescriptions will include symptomatic care Patient's prior external medical records from other ER visits were reviewed by me as indicated. Prior testing and results from previous visits were reviewed. Prior tests were taken into account with medical decision making and resource utilization, independent historian/historians were used to obtain complete medical history. I independently interpreted the test that were performed, results were reviewed by me and considered findings on radiology if ordered. Medical management and examination interpretation discussions were had by me with other qualified healthcare professionals as indicated for the patient's care. Problem List Problem List: (1) Malfunction of vacuum-assisted closure (VAC) device (2) Diabetic foot ulcer (3) Osteomyelitis of right foot DX & DISP Disposition: Discharge Departure Impression: Primary Impression: Malfunction of vacuum-assisted closure (VAC) device Additional Impressions: Diabetic foot ulcer, Osteomyelitis of right foot Condition: Stable Additional Instructions: Patient and the caregiver have been informed of all the diagnostic tests and the imaging conducted during the today's visit to the emergency room and has verbalized understanding of the results I have personally reviewed and interpreted all diagnostic exams performed here in the ER today as well as the vital signs documented by the nursing staff. The patient is now being discharged to home and should follow up with the primary care physician or the specialist as directed by the ER staff. Follow-up with primary care provider in 1 to 2 days. Take medications as directed here in the emergency room. Okay to continue home medications unless otherwise discussed during your visit in the emergency room today. Return to your nearest emergency room if symptoms worsen or if there is no improvement. Call 911 if you need immediate assistance. Take Tylenol or Motrin [id number] as needed and if no contraindications are present. Increase oral hydration. A wound culture or urine culture was ordered here in the emergency room department please follow-up with primary care provider and advise them to get repeat ports from our facility. If you had any Manuel wrap/splints that were applied here, please do not remove them until you see your primary care or specialty. Wound care nurse is scheduled to see him tomorrow. Referrals: JAQUELINE ANDERSON (PCP) KRISTIN SHIPMAN MD Aug 08, 2025 19:55
[2025-08-08 23:06] VITALS: BP 160/89; PULSE 88; RESP 18; TEMP 98.3; O2SAT 98
== END 2025-08-08 23:09 | disposition home or self-care (01) ==
LOC: EDH 19:29
DX: E11.621 Type 2 diabetes mellitus with foot ulcer (principal); L97.519 Non-pressure chronic ulcer of other part of right foot with unspecified severity; M86.9 Osteomyelitis, unspecified; I10 Essential (primary) hypertension; Z79.4 Long term (current) use of insulin; Z79.84 Long term (current) use of oral hypoglycemic drugs; Z79.85 Long-term (current) use of injectable non-insulin antidiabetic drugs; Z79.899 Other long term (current) drug therapy; Z88.5 Allergy status to narcotic agent
CPT/HCPCS: 99283